=== PATIENT | male | born 1970 | race Caucasian/White ===

== ENCOUNTER 2017-04-21 21:01 | Emergency (ER) | payer SELFPAY ==
[~2017-04-21] VITALS: Ht 177.8 cm; Wt 92.3 kg
[~2017-04-21 21:01] MED LIST: AMOX875T PO; CLON0.5T3 PO; CLX/20 PO; EFAVTAB PO; GABA1CAP4 PO; OXYC1TAB3 PO; ZFRODT/8 SL
[2017-04-21 21:08] VITALS: TEMP 37; Ht 177.8 cm; Wt 92.3 kg
[2017-04-21] MEDS ORDERED: CEPHALEXIN 500MG HOME PACK 1 EA BTL PO STA (21:38)
[2017-04-21] MEDS ORDERED: CEPH500C PO (22:07)
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
[2017-04-21 22:13] VITALS: BP 147/95; PULSE 78; O2SAT 96
[2017-04-21] MEDS ORDERED: EMTR1TAB9 PO (22:16)
== END 2017-04-21 22:13 | disposition home or self-care (01) ==
LOC: C.EDB 21:03 → C.EDD 22:13
DX: S01.311A Laceration without foreign body of right ear, initial encounter (principal); T14.8XXA Other injury of unspecified body region, initial encounter; Y09 Assault by unspecified means; B20 Human immunodeficiency virus [HIV] disease; Z79.899 Other long term (current) drug therapy